=== PATIENT | female | born 1995 | race Two or more races ===

== ENCOUNTER 2024-05-29 20:21 | Emergency (ER) | payer OTHER ==
[2024-05-29 20:33] VITALS: BP 108/72; PULSE 91; RESP 18; TEMP 97.9; BMI 27.4
== END 2024-05-29 20:44 | disposition home or self-care (01) ==
LOC: FER 20:21
DX: O26.893 Other specified pregnancy related conditions, third trimester (principal); R10.10 Upper abdominal pain, unspecified; Z3A.35 35 weeks gestation of pregnancy
CPT/HCPCS: 76815; 99284-25